=== PATIENT | female | born 1970 | race Caucasian/White ===

== ENCOUNTER → 2018-06-28 | Outpatient (CLI) | payer OTHER | END | disposition home or self-care (01) | LOC: CFH 06:55 | PROVIDERS: ATTEND Obstetrics & Gynecology | DX: Z12.31 Encounter for screening mammogram for malignant neoplasm of breast (principal); Z80.3 Family history of malignant neoplasm of breast | CPT/HCPCS: 77063; 77067 ==

== ENCOUNTER → 2020-08-27 | Outpatient (CLI) | payer OTHER | END | disposition home or self-care (01) | LOC: CFH 06:58 | PROVIDERS: ATTEND Obstetrics & Gynecology | DX: Z12.31 Encounter for screening mammogram for malignant neoplasm of breast (principal) | CPT/HCPCS: 77063; 77067 ==

== ENCOUNTER 2020-08-30 14:16 | Emergency (ER) | payer OTHER ==
[~2020-08-30] VITALS: Ht 172.7 cm; Wt 75.0 kg
[2020-08-30 14:30] VITALS: BP 105/69
[2020-08-30] MEDS ORDERED: L.E.T SOLUTION TP ONE ×2 (15:00→15:20)
[2020-08-30] MEDS ORDERED: LIDOCAINE-MPF 1%, 5ML ONE (16:10)
[2020-08-30] MEDS ORDERED: NEOSPORIN OINT. PKT 1 PACKET ONE (16:13)
== END 2020-08-30 16:56 ==
LOC: ED 14:49
DX: S01.91XA Laceration without foreign body of unspecified part of head, initial encounter (principal); S90.32XA Contusion of left foot, initial encounter; S90.31XA Contusion of right foot, initial encounter; E03.9 Hypothyroidism, unspecified; W11.XXXA Fall on and from ladder, initial encounter; Y93.89 Activity, other specified; Y92.098 Other place in other non-institutional residence as the place of occurrence of the external cause; Y99.8 Other external cause status
CPT/HCPCS: 12032; 99284